=== PATIENT | female | born 1980 | race Caucasian/White ===

== ENCOUNTER 2016-09-26 15:21 | Emergency (ER) | payer BC, OTHER ==
[~2016-09-26] VITALS: Ht 162.6 cm; Wt 102.6 kg
[2016-09-26 15:23] VITALS: BP 149/81
[2016-09-26] MEDS ORDERED: LIDOCAINE 1%, 20ML ONE (15:37)
[2016-09-26] MEDS ORDERED: LIDOCAINE 1%, 20ML SQ ONE (16:00)
== END 2016-09-26 16:07 | disposition home or self-care (01) ==
LOC: ED 16:01
DX: L02.213 Cutaneous abscess of chest wall (principal)
CPT/HCPCS: 10060

== ENCOUNTER 2019-02-02 21:25 | Emergency (ER) | payer BC, OTHER ==
[~2019-02-02] VITALS: Ht 162.6 cm; Wt 103.7 kg
[2019-02-03 00:04] VITALS: BP 106/72
== END 2019-02-03 00:06 | disposition home or self-care (01) ==
LOC: ED 22:11
DX: G43.009 Migraine without aura, not intractable, without status migrainosus (principal)
CPT/HCPCS: 36415; 70450; 80048; 82040; 84703; 85025; 93005; 96374; 96375; 99284; J0780; J1200; J1885